=== PATIENT | female | born 2000 | race Caucasian/White ===

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

== ENCOUNTER 2024-02-17 07:41 | Emergency (ER) | payer OTHER ==
[~2024-02-17] VITALS: Ht 157.5 cm; Wt 81.8 kg
[2024-02-17 07:46] VITALS: TEMP 97.4
[2024-02-17 08:30] VITALS: BP 122/84; PULSE 63
== END 2024-02-17 08:30 | disposition home or self-care (01) ==
LOC: COL.ER 07:41
DX: S06.0X1A Concussion with loss of consciousness of 30 minutes or less, initial encounter (principal); W01.198A Fall on same level from slipping, tripping and stumbling with subsequent striking against other object, initial encounter; Y93.01 Activity, walking, marching and hiking; Y92.000 Kitchen of unspecified non-institutional (private) residence as the place of occurrence of the external cause